=== PATIENT | male | born 1940 | race Caucasian/White ===

== ENCOUNTER → 2019-09-24 13:13 | Outpatient (ROUT) | payer MEDICARE, BC, SELFPAY ==
[2019-09-24 14:25] LABS: BUN Creatinine Ratio 18.9 (6-22); Blood Urea Nitrogen 17 mg/dL (9-20); Calcium 8.8 mg/dL (8.4-10.2); Carbon Dioxide 27 mmol/L (22-32); Chloride 105 mmol/L (98-107); Cholesterol 140 mg/dL (140-199); Estimated Glomerular Filt Rate > 60.0 mL/min (>60); Glucose 108 mg/dL (80-110); HDL Cholesterol 37 mg/dL (40-60); HEMOLYSIS < 15 (0-50); LDL Cholesterol Calculated 79 mg/dL (<100); Potassium 4.5 mmol/L (3.4-5.1); Sodium 140 mmol/L (137-145); Triglycerides 121 mg/dL (35-150)
[2019-09-24 14:53] LABS: Prostate Specific Antigen 0.543 ng/mL (0.10-4.00)
== END ==
PROVIDERS: Visit Provider Internal Medicine
DX: Z13.220 Encounter for screening for lipoid disorders (principal); Z12.5 Encounter for screening for malignant neoplasm of prostate; Z13.1 Encounter for screening for diabetes mellitus
CPT/HCPCS: 80048; 80061; 84153; G0103

== ENCOUNTER → 2022-03-13 13:55 | Outpatient (CLI) | payer MEDICARE, BC, SELFPAY ==
--- NOTE | 2022-03-13 14:06 | DI.RAD.S_ITS ---
PROCEDURE: XR CHEST 2V INDICATIONS: Cough TECHNIQUE: 2 views of the chest were acquired. COMPARISON: None. FINDINGS: Surgical changes and devices: None. Lungs and pleura: An incomplete inspiratory result is noted, causing a crowded appearance to the lung markings. No focal infiltrates are seen. No pneumothorax or significant pleural effusions are seen. Mediastinum: The cardiac contours are within normal limits. The aorta demonstrates calcification and tortuosity. Bones and chest wall: No suspicious bony abnormalities. Soft tissues appear unremarkable. IMPRESSION: Low lung volumes, without a focal infiltrate seen. Dictated by: Braden Bacon M.D. on 03/13/2022 at 13:29 Approved by: Braden Bacon M.D. on 03/13/2022 at 13:30
[2022-03-13 14:24] LABS: COVID19 -Nasal RAPID Negative (Negative)
== END ==
PROVIDERS: PCP Internal Medicine; Visit Provider Nurse Practitioner Critical Care Medicine
DX: Z20.822 Contact with and (suspected) exposure to COVID-19 (principal); R05.9 Cough, unspecified
CPT/HCPCS: 71046; 87635

== ENCOUNTER 2022-07-28 14:09 | Emergency (ER) | payer MEDICARE, BC, SELFPAY ==
[2022-07-28 14:15] VITALS: BP 158/76; PULSE 56; RESP 18; TEMP 36.6; O2SAT 98; BMI 25.3
--- NOTE | 2022-07-28 14:23 | DI.RAD.S_ITS ---
PROCEDURE: XR CHEST 1V INDICATIONS: chest pain TECHNIQUE: One view of the chest was acquired. COMPARISON: [facility], CR, XR CHEST 2V, 03/13/2022, 13:56. FINDINGS: Surgical changes and devices: None. Lungs and pleura: Lungs are clear. No pleural effusions or pneumothorax. Mediastinum: Mediastinal contours appear normal. Heart size is normal. Bones and chest wall: No suspicious bony lesions. Overlying soft tissues appear unremarkable. IMPRESSION: No acute process. Dictated by: Basim Ramirez M.D. on 07/28/2022 at 15:02 Approved by: Basim Ramirez M.D. on 07/28/2022 at 15:02
[2022-07-28 14:39] LABS: Add Manual Diff / Slide Review NO; Basophils Absolute Auto 0 /uL (0-100); Basophils Percent Auto 0.4 % (0-2); Eosinophils Absolute Auto 0 /uL (0-450); Eosinophils Percent Auto 0.6 % (2-4); Hematocrit 40.1 % (41-53); Hemoglobin 13.4 g/dL (13.5-17.5); Lymphocytes Absolute Auto 1500 /uL (1100-4500); Lymphocytes Percent Auto 27.8 % (25-40); Mean Corpuscular HGB Conc 33.5 % (30-36); Mean Corpuscular Hemoglobin 29.8 PG (26-34); Mean Corpuscular Volume 88.8 fL (80-100); Monocytes Absolute Auto 400 /uL (0-900); Monocytes Percent Auto 6.6 % (3-14); Neutrophils Absolute Auto 3500 /uL (1500-7000); Neutrophils Percent Auto 64.6 % (50-75); Platelet Count 341 X10^3/uL (150-400); Red Blood Cell Count 4.51 X10^6/uL (4.5-5.9); Red Cell Distribution Width 16.3 % (11.6-14.8); White Blood Cell Count 5.5 X10^3/uL (4.5-11.0)
[2022-07-28 14:51] LABS: Blood Urea Nitrogen 17 mg/dL (9-20); Carbon Dioxide 23 mmol/L (22-32); Chloride 104 mmol/L (98-107); Creatine Kinase 55 U/L (55-170); Potassium 4.3 mmol/L (3.4-5.1); Sodium 136 mmol/L (137-145)
[2022-07-28 14:52] LABS: Alanine Aminotransferase 41 IU/L (<50); Albumin 3.7 g/dL (3.5-5.0); Albumin Globulin Ratio 1.2 (1.0-2.8); Alkaline Phosphatase 64 U/L (38-126); Aspartate Aminotransferase 41 IU/L (17-59); BUN Creatinine Ratio 18.7 (6-22); Bilirubin Total 0.4 mg/dL (0.2-1.3); Calcium 8.5 mg/dL (8.4-10.2); Estimated Glomerular Filt Rate > 60 mL/min (>60); Glucose 102 mg/dL (80-110); HEMOLYSIS < 15 (0-50); Lipase 53 U/L (23-300); Magnesium 2.1 mg/dL (1.6-2.3); Total Protein 6.7 g/dL (6.3-8.2)
[2022-07-28 15:02] LABS: Troponin I < 0.012 ng/mL (0.01-0.034)
[2022-07-28 15:28] VITALS: PULSE 63; RESP 14
[2022-07-28 15:30] VITALS: PULSE 63; RESP 16; O2SAT 66
[2022-07-28 15:36] VITALS: BP 148/80; PULSE 63; RESP 25; O2SAT 99
[2022-07-28 16:00] VITALS: BP 149/76; PULSE 60; RESP 19; O2SAT 97
--- NOTE | 2022-07-28 16:22 | ED_ITS ---
HPI - Chest Pain General Chief Complaint: Chest Pain Stated Complaint: Chest discomfort, heart palpitations post covid Time Seen by Provider: 07/28/22 15:43 Source: patient Mode of arrival: Ambulatory Limitations: no limitations History of Present Illness HPI narrative: 81-year-old male who approximately 1 week ago was diagnosed with COVID. This was after having subjective fevers and a runny nose. He feels like his symptoms have improved. Since the beginning of the week (last couple days) he has had some upper chest discomfort when he wakes up in the morning. It goes away on its own. He feels that it is a tightness in his chest. He also is having palpitations but this is not new for him. No current fevers. Is currently asymptomatic. No cough. Contact his primary doctor who advised he come to the ER for evaluation. Related Data Home Medications Medication Instructions Recorded Confirmed pantoprazole 40 mg tablet,delayed 40 mg PO DAILY 03/13/22 03/13/22 release timolol 0.5 % eye drops drp EYE-BOTH 03/13/22 03/13/22 Previous Rx's Medication Instructions Recorded cetirizine 10 mg capsule (All Day 10 mg PO DAILY PRN allergy 03/13/22 Allergy (cetirizine)) symptoms #30 caps codeine 8 mg-guaifenesin 200 mg/5 7.5 ml PO Q4H PRN cough #180 mL 03/13/22 mL oral liquid fluticasone furoate 27.5 2 spray intranasal BID PRN nasal 03/13/22 mcg/actuation nasal congestion #9.1 mL spray,suspension finasteride 5 mg tablet 5 mg PO DAILY #60 tabs 05/24/22 terazosin 5 mg capsule 5 mg PO DAILY #90 caps 05/26/22 Allergies Allergy/AdvReac Type Severity Reaction Status Date / Time Antibiotic creams Allergy Rash Uncoded 07/28/22 14:21 Review of Systems Constitutional Constitutional: Reports system reviewed and no additional complaints, except as documented ENT Ears, Nose, Mouth, and Throat: Reports system reviewed and no additional complaints, except as documented Cardiovascular Cardiovascular: Reports system reviewed and no additional complaints, except as documented Respiratory Respiratory: Reports system reviewed and no additional complaints, except as documented Gastrointestinal Gastrointestinal: Reports system reviewed and no additional complaints, except as documented Integumentary/Breasts Skin/Breast: Reports system reviewed and no additional complaints, except as documented Hematologic/Lymphatic On Anticoagulants: No Patient History Medical History Cataracts, bilateral (~2017) Chicken pox Colon polyps (~1994) Enlarged prostate (~1999) Glaucoma (~2004) Hearing loss (~1979) Measles (~1946) Palpitations (~1958) Vertigo (~2011) Surgical History (Updated 07/27/22 @ 20:19 by Zo Granda) Anesthesia History of appendectomy (~1949) History of colonoscopy (~2019) History of tonsillectomy (~1947) Family History (Updated 07/27/22 @ 20:25 by Zo rGanda) Father History of heart disease Hyperlipidemia Mother Breast cancer Diabetes mellitus Sister Glaucoma Grandmother Diabetes mellitus Grandfather History of heart disease Grandmother History of heart disease Social History Smoking Status: Former smoker Smoking Status: Former smoker alcohol intake frequency: a few times a month Exam Initial Vital Signs Initial Vital Signs: Vital Signs Temperature 97.8 F 07/28/22 14:15 Pulse Rate 56 L 07/28/22 14:15 Respiratory Rate 18 07/28/22 14:15 Blood Pressure 158/76 H 07/28/22 14:15 Pulse Oximetry 98 07/28/22 14:15 Oxygen Delivery Method 07/28/22 14:15 Const General: cooperative and comfortable HENMT Head: normal to inspection and normocephalic Chest Chest: normal inspection of the chest Resp Effort & Inspection: normal respiratory effort Auscultation: clear to auscultation bilaterally Cardio Rate: regular rate Rhythm: regular rhythm GI Inspection: normal to inspection Skin General: no rashes or lesions noted Extrem General: No edema Scores HEART Score Heart Score history: Slightly Suspicious Heart Score EKG: Normal Heart Score Age: > or = 65 years old Heart Score risk factors: 1-2 risk factors Heart Score troponin: < or = to normal limit Heart Score Total: 3 Course Orders Ordered: ED Orders 07/28/22 14:23 XR chest 1V Stat EKG-12 Lead Stat 07/28/22 14:30 Complete Blood Count AUTO DIFF Stat Comprehensive Metabolic Panel Stat Lipase Stat Magnesium Stat Troponin & CK Cardiac Panel Stat 07/28/22 16:26 COVID19 -Nasal RAPID/Pre-Proc Stat 07/28/22 16:32 Troponin I Stat Vital Signs Vital signs: Vital Signs - 8 hr 07/28/22 14:15 07/28/22 15:28 07/28/22 15:30 Temperature 97.8 F Pulse Rate 56 L 63 63 Respiratory Rate 18 14 16 Blood Pressure 158/76 H Pulse Oximetry 98 66 L Oxygen Delivery Method Room Air 07/28/22 15:36 07/28/22 15:36 07/28/22 16:00 Temperature Pulse Rate 63 Respiratory Rate 25 H Blood Pressure 148/80 H 149/76 H Pulse Oximetry 99 Oxygen Delivery Method 07/28/22 16:00 07/28/22 16:30 07/28/22 16:30 Temperature Pulse Rate 60 57 L Respiratory Rate 19 15 Blood Pressure 146/77 H Pulse Oximetry 97 98 Oxygen Delivery Method MDM - Chest Pain Lab Data Attestation: I reviewed the patient's lab results. Result diagrams: 07/28/22 14:30 07/28/22 14:30 Labs: Lab Results 07/28/22 07/28/22 07/28/22 Range/Units 14:30 14:30 16:26 WBC 5.5 (4.5-11.0) X10^3/uL RBC 4.51 (4.5-5.9) X10^6/uL Hgb 13.4 L (13.5-17.5) g/dL Hct 40.1 L (41-53) % MCV 88.8 (80-100) fL MCH 29.8 (26-34) PG MCHC 33.5 (30-36) % RDW 16.3 H (11.6-14.8) % Plt Count 341 (150-400) X10^3/uL Neut % (Auto) 64.6 (50-75) % Lymph % (Auto) 27.8 (25-40) % Kendall % (Auto) 6.6 (3-14) % Eos % (Auto) 0.6 L (2-4) % Baso % (Auto) 0.4 (0-2) % Neut # (Auto) 3500 (6381-6108) /uL Lymph # (Auto) 1500 (8150-7234) /uL Kendall # (Auto) 400 (0-900) /uL Eos # (Auto) 0 (0-450) /uL Baso # (Auto) 0 (0-100) /uL Sodium 136 L (137-145) mmol/L Potassium 4.3 (3.4-5.1) mmol/L Chloride 104 (98-107) mmol/L Carbon Dioxide 23 (22-32) mmol/L BUN 17 (9-20) mg/dL Creatinine 0.91 (0.66-1.25) mg/dL Estimated GFR > 60 (>60) mL/min BUN/Creatinine Ratio 18.7 (6-22) Glucose 102 (80-110) mg/dL Calcium 8.5 (8.4-10.2) mg/dL Magnesium 2.1 (1.6-2.3) mg/dL Total Bilirubin 0.4 (0.2-1.3) mg/dL AST 41 (17-59) IU/L ALT 41 (<50) IU/L Alkaline Phosphatase 64 (38-126) U/L Total Creatine Kinase 55 (55-170) U/L CK-MB (CK-2) TNP CK-MB (CK-2) Rel Index TNP Troponin I < 0.012 (0.01-0.034) ng/mL Total Protein 6.7 (6.3-8.2) g/dL Albumin 3.7 (3.5-5.0) g/dL Globulin 3.0 (1.7-4.1) g/dL Albumin/Globulin Ratio 1.2 (1.0-2.8) Lipase 53 (23-300) U/L SARS-CoV-2 (PCR) Positive H (Negative) 07/28/22 Range/Units 16:32 WBC (4.5-11.0) X10^3/uL RBC (4.5-5.9) X10^6/uL Hgb (13.5-17.5) g/dL Hct (41-53) % MCV (80-100) fL MCH (26-34) PG MCHC (30-36) % RDW (11.6-14.8) % Plt Count (150-400) X10^3/uL Neut % (Auto) (50-75) % Lymph % (Auto) (25-40) % Kendall % (Auto) (3-14) % Eos % (Auto) (2-4) % Baso % (Auto) (0-2) % Neut # (Auto) (3990-6021) /uL Lymph # (Auto) (3519-3513) /uL Kendall # (Auto) (0-900) /uL Eos # (Auto) (0-450) /uL Baso # (Auto) (0-100) /uL Sodium (137-145) mmol/L Potassium (3.4-5.1) mmol/L Chloride (98-107) mmol/L Carbon Dioxide (22-32) mmol/L BUN (9-20) mg/dL Creatinine (0.66-1.25) mg/dL Estimated GFR (>60) mL/min BUN/Creatinine Ratio (6-22) Glucose (80-110) mg/dL Calcium (8.4-10.2) mg/dL Magnesium (1.6-2.3) mg/dL Total Bilirubin (0.2-1.3) mg/dL AST (17-59) IU/L ALT (<50) IU/L Alkaline Phosphatase (38-126) U/L Total Creatine Kinase (55-170) U/L CK-MB (CK-2) CK-MB (CK-2) Rel Index Troponin I < 0.012 (0.01-0.034) ng/mL Total Protein (6.3-8.2) g/dL Albumin (3.5-5.0) g/dL Globulin (1.7-4.1) g/dL Albumin/Globulin Ratio (1.0-2.8) Lipase (23-300) U/L SARS-CoV-2 (PCR) (Negative) Imaging Data Chest x-ray: Radiologist's Impression: [address] [address] XRay Report Signed Patient: Yusuf Villa MR#: [id number] : 1940 Acct:[id number] Age/Sex: 81 / M Date of Service: 07/28/22 Loc: Accession Number: [id number] ?? Procedure: XR chest 1V Ordering Provider: Yusuf Domingo D.O. PROCEDURE:? XR CHEST 1V ? INDICATIONS:? chest pain ? TECHNIQUE:? One view of the chest was acquired.? ? COMPARISON:? [facility], CR, XR CHEST 2V, 03/13/2022, 13:56. ? FINDINGS:? ? Surgical changes and devices:? None.? ? Lungs and pleura:? Lungs are clear.? No pleural effusions or pneumothorax.? ? Mediastinum:? Mediastinal contours appear normal.? Heart size is normal.? ? Bones and chest wall:? No suspicious bony lesions.? Overlying soft tissues appear unremarkable.? ? IMPRESSION:? No acute process. ? ? Dictated by: Basim Ramirez M.D. on 07/28/2022 at 15:02 ? ? Approved by: Basim Ramirez M.D. on 07/28/2022 at 15:02? Extremity x-ray #1: Radiologist's Impression: [place] [address] XRay Report Signed Patient: Yusuf Villa MR#: [id number] : 1940 Acct:[id number] Age/Sex: 81 / M Date of Service: 07/28/22 Loc: Accession Number: [id number] ?? Procedure: XR chest 1V Ordering Provider: Yuusf Domingo D.O. PROCEDURE:? XR CHEST 1V ? INDICATIONS:? chest pain ? TECHNIQUE:? One view of the chest was acquired.? ? COMPARISON:? [facility], , XR CHEST 2V, 03/13/2022, 13:56. ? FINDINGS:? ? Surgical changes and devices:? None.? ? Lungs and pleura:? Lungs are clear.? No pleural effusions or pneumothorax.? ? Mediastinum:? Mediastinal contours appear normal.? Heart size is normal.? ? Bones and chest wall:? No suspicious bony lesions.? Overlying soft tissues appear unremarkable.? ? IMPRESSION:? No acute process. ? ? Dictated by: Basim Ramirez M.D. on 07/28/2022 at 15:02 ? ? Approved by: Basim Ramirez M.D. on 07/28/2022 at 15:02? ECG Data Attestation: I personally reviewed and interpreted this ECG as follows: Interpretation: Initial EKG shows limb lead reversal Repeat EKG Sinus bradycardia Ventricular rate of 56 Left axis deviation Normal QRS Normal QTC No ST T wave changes MDM Narrative Medical decision making narrative: EKG is unremarkable, low risk chest score, chest x-ray is unremarkable, 2- troponins. Patient is still COVID positive but is essentially asymptomatic. We had a discussion with regard to his chest discomfort. I have lower suspicion for ACS and suspect more that this is COVID related. Patient not hypoxic. Will discharge patient home and have him follow-up with his primary provider. He was given return precautions. He expressed understanding and agreement. Discharge Plan Departure Patient Disposition: Home Clinical Impression: Atypical chest pain Instructions: DI for Atypical Chest Pain Activity Restrictions/Additional Instructions: I recommend you continue to take all of your medications as directed. Contact your primary doctor for a follow-up. Return to the emergency department for any new or worsening symptoms. Prescriptions: No Action timolol 0.5 % drops EYE-BOTH pantoprazole 40 mg tablet,delayed release (DR/EC) 40 mg PO DAILY codeine-guaifenesin 8-200 mg/5 mL liquid 7.5 ml PO Q4H PRN (Reason: cough) Qty: 180 0RF fluticasone furoate 27.5 mcg/actuation spray,suspension 2 spray intranasal BID PRN (Reason: nasal congestion) Qty: 9.1 0RF Rx Instructions: into each nostril All Day Allergy (cetirizine) 10 mg capsule 10 mg PO DAILY PRN (Reason: allergy symptoms) Qty: 30 0RF finasteride 5 mg tablet 5 mg PO DAILY Qty: 60 0RF terazosin 5 mg capsule 5 mg PO DAILY Qty: 90 3RF Referrals: Kolton Mccullough MD [Primary Care Provider] -
[2022-07-28 16:30] VITALS: BP 146/77; PULSE 57; RESP 15; O2SAT 98
[2022-07-28 16:43] LABS: COVID19 -Nasal RAPID POSITIVE (Negative)
[2022-07-28 17:03] LABS: Troponin I < 0.012 ng/mL (0.01-0.034)
== END 2022-07-28 17:34 | disposition home or self-care (01) ==
PROVIDERS: Emergency Provider Emergency Medicine; PCP Family Medicine
DX: R07.89 Other chest pain (principal); R00.2 Palpitations; U07.1 COVID-19
CPT/HCPCS: 36415; 71045; 80053; 82550; 83690; 83735; 84484; 85025; 87635; 93005; 99283; 99284; C9803

== ENCOUNTER → 2022-10-14 09:51 | Outpatient (CLI) | payer MEDICARE, BC, SELFPAY ==
[2022-10-14 11:45] LABS: Add Manual Diff / Slide Review NO; Basophils Absolute Auto 0 /uL (0-100); Basophils Percent Auto 0.6 % (0-2); Eosinophils Absolute Auto 0 /uL (0-450); Eosinophils Percent Auto 0.4 % (2-4); Hematocrit 39.7 % (41-53); Hemoglobin 13.2 g/dL (13.5-17.5); Lymphocytes Absolute Auto 1500 /uL (1100-4500); Lymphocytes Percent Auto 27.3 % (25-40); Mean Corpuscular HGB Conc 33.2 % (30-36); Mean Corpuscular Volume 90.5 fL (80-100); Monocytes Absolute Auto 600 /uL (0-900); Monocytes Percent Auto 10.1 % (3-14); Neutrophils Absolute Auto 3400 /uL (1500-7000); Neutrophils Percent Auto 61.6 % (50-75); Platelet Count 304 X10^3/uL (150-400); Red Blood Cell Count 4.38 X10^6/uL (4.5-5.9); Red Cell Distribution Width 16.5 % (11.6-14.8); White Blood Cell Count 5.6 X10^3/uL (4.5-11.0)
[2022-10-14 12:32] LABS: Alanine Aminotransferase 37 IU/L (<50); Albumin 3.5 g/dL (3.5-5.0); Albumin Globulin Ratio 1.3 (1.0-2.8); Alkaline Phosphatase 76 U/L (38-126); Aspartate Aminotransferase 32 IU/L (17-59); BUN Creatinine Ratio 23.9 (6-22); Bilirubin Total 0.5 mg/dL (0.2-1.3); Blood Urea Nitrogen 21 mg/dL (9-20); Calcium 8.8 mg/dL (8.4-10.2); Carbon Dioxide 29 mmol/L (22-32); Chloride 99 mmol/L (98-107); Cholesterol 129 mg/dL (140-199); Estimated Glomerular Filt Rate > 60 mL/min (>60); Globulin 2.7 g/dL (1.7-4.1); Glucose 97 mg/dL (80-110); HDL Cholesterol 39 mg/dL (40-60); LDL Cholesterol Calculated 74 mg/dL (<100); Potassium 4.3 mmol/L (3.4-5.1); Sodium 134 mmol/L (137-145); Total Protein 6.2 g/dL (6.3-8.2); Triglycerides 82 mg/dL (35-150)
[2022-10-14 15:50] LABS: HEMOLYSIS < 15 (0-50); Prostate Specific Antigen Scrn 0.634 ng/mL (0.1-4.0)
== END ==
PROVIDERS: PCP Family Medicine; Referring Provider Family Medicine; Visit Provider Family Medicine
DX: D64.9 Anemia, unspecified (principal); E78.6 Lipoprotein deficiency; Z12.5 Encounter for screening for malignant neoplasm of prostate; E87.1 Hypo-osmolality and hyponatremia
CPT/HCPCS: 36415; 80053; 80061; 85025; G0103